=== PATIENT | male | born 1985 | race Caucasian/White ===

== ENCOUNTER 2017-02-22 13:03 | Emergency (ER) | payer OTHER ==
[~2017-02-22] VITALS: Ht 180.3 cm; Wt 98.7 kg
[2017-02-22 13:20] VITALS: BP 145/64
[2017-02-22 13:57] LABS: HEMATOCRIT 44.7 % (38.0-50.0); MCH 30.7 PG (29.0-34.0); MCHC 35.8 G/DL (30.0-36.0); MCV 85.8 FL (86-99); MEAN PLAT.VOLUME 10.3 uM^3 (9.0-12.4); PLATELET COUNT 217 K/uL (156-360); RBC DIS.WIDTH-CV 13.4 % (11.8-14.6); RBC DIS.WIDTH-SD 41.9 % (39-53); RED BLOOD COUNT 5.21 M/uL (4.00-5.50); WHITE BLOOD COUNT 12.2 K/uL (4.1-10.2)
[2017-02-22] MEDS ORDERED: LISINOPRIL20 MG PO (14:02)
[2017-02-22] MEDS ORDERED: RISPERDAL1 MG PO (14:03)
[2017-02-22] MEDS ORDERED: TRAZODONE HCL50 MG PO (14:03)
[2017-02-22] MEDS ORDERED: BUSPAR5 MG PO (14:03)
[2017-02-22 14:06] LABS: CHLORIDE 93 mEq/L (99-109); SODIUM 136 mEq/L (136-147)
[2017-02-22 14:08] LABS: GLUCOSE 103 mg/dL (70-99)
[2017-02-22 14:12] LABS: GFR ESTIMATE (CALCULATED) > 59 mL/min/
[2017-02-22 14:46] LABS: BILIRUBIN NEGATIVE; BLOOD NEGATIVE; COLOR YELLOW ((YELLOW)); GLUCOSE (STRIP) NEGATIVE; KETONES NEGATIVE; LEUKOCYTES NEGATIVE; NITRITE NEGATIVE; PROTEIN (STRIP) NEGATIVE; SPECIFIC GRAVITY 1.009 (1.000-1.030); UROBILINOGEN 0.2 MG/DL (0.2-1.0)
[2017-02-22 14:47] LABS: ADD MIUA? NO; UCUL ADDED? NO
[2017-02-22 15:34] LABS: UREA NITROGEN (BUN) 11 mg/dL (9-23)
[2017-02-22 15:35] LABS: ALKALINE PHOSPHATASE 77 IU/L (3-129)
[2017-02-22 15:36] LABS: ANION GAP 19 MEQ/L (2-14)
[2017-02-22 15:37] LABS: LIPASE 11 U/L (1.0-51.0); SERUM ETHYL ALCOHOL 200 mg/dL
[2017-02-22] MEDS ORDERED: ZOFRAN ODT4 MG PO (16:33)
== END 2017-02-22 16:50 | disposition left against medical advice (07) ==
LOC: EME 13:03 → EXP 13:03
DX: E87.6 Hypokalemia (principal); F10.10 Alcohol abuse, uncomplicated; Z53.20 Procedure and treatment not carried out because of patient's decision for unspecified reasons; K21.9 Gastro-esophageal reflux disease without esophagitis; F17.200 Nicotine dependence, unspecified, uncomplicated
CPT/HCPCS: 80053; 81003; 83690; 85027; 99281; 99284; G0480; J7030